=== PATIENT | male | born 1965 | race Hispanic/Latino ===

== ENCOUNTER 2024-02-24 20:02 | Inpatient (IN) | payer BC ==
[~2024-02-24] VITALS: Ht 180.3 cm; Wt 101.1 kg
[2024-02-24] MEDS: ACETAMINOPHEN 500 MG TABLET PO ONE (20:16)
[2024-02-24] MEDS ORDERED: CEFTRIAXONE 2GM VIAL IVPB ONE (20:30)
[2024-02-24] MEDS ORDERED: CEFTRIAXONE 1G VIAL 2 GM in 0.9%NACL 100ML 100 ML IV ONE (20:30)
[2024-02-24 20:37] LABS: RAPID GROUP A STREP negative (NEGATIVE)
[2024-02-24 20:39] LABS: INFLUENZA TYPE A NEGATIVE FOR TYPE A (NEG)
[2024-02-24 20:40] LABS: INFLUENZA TYPE B NEGATIVE FOR TYPE B (NEG)
[2024-02-24 20:42] LABS: SARS-CoV-2, RNA, NAAT NEGATIVE SARS CoV-2 (NEGATIVE)
[2024-02-24 20:51] LABS: BASOPHILS # (AUTO) 0.12 K/uL (0.00-0.20); BASOPHILS % (AUTO) 0.7 % (0.0-5.0); EOSINOPHILS % (AUTO) 0.6 % (0.0-8.0); HEMATOCRIT 48.2 % (42-54); IMMATURE GRANULOCYTE ABSOLUTE 0.13 K/uL (0-1); LYMPHOCYTES # (AUTO) 0.8 K/uL (1.0-4.8); LYMPHOCYTES % (AUTO) 4.7 % (21.0-51.0); MEAN CORPUSCULAR HEMOGLOBIN 32.2 pg (27.0-33.0); MEAN CORPUSCULAR HGB CONC 36.5 g/dL (32.0-36.0); MEAN CORPUSCULAR VOLUME 88.1 fL (79-99); MONOCYTES # (AUTO) 0.8 K/uL (0.1-1.0); MONOCYTES % (AUTO) 4.7 % (3.0-13.0); NEUTROPHILS # (AUTO) 14.6 K/uL (1.8-7.7); NEUTROPHILS % (AUTO) 88.5 % (40.0-77.0); PLATELET COUNT (AUTO) 144 K/uL (130-400); RED BLOOD CELL COUNT(AUTO) 5.47 MIL/uL (4.50-6.20); RED CELL DISTRIBUTION WIDTH 12.1 % (11.0-15.5); WHITE BLOOD COUNT (AUTO) 16.5 K/uL (4.8-10.8)
[2024-02-24 21:08] LABS: ALBUMIN 3.4 g/dL (3.5-5.0); CREATININE 1.1 mg/dL (0.5-1.3)
[2024-02-24 21:09] LABS: INR 1.13 (0.85-1.15); PROTHROMBIN TIME 13.2 SEC (9.6-11.6)
[2024-02-24 21:22] LABS: TOTAL PROTEIN, SERUM 6.9 g/dL (6.0-8.3)
[2024-02-24 21:24] LABS: POTASSIUM 2.6 mmol/L (3.5-5.1)
[2024-02-24 21:26] LABS: B-TYPE NATRIURETIC PEPTIDE 8 pg/mL (0-100)
[2024-02-24 21:49] VITALS: TEMP 98.5
[2024-02-24] MEDS: CEFTRIAXONE 1G VIAL IVPB ONE (21:59)
[2024-02-24] MEDS: METRONIDAZOLE 500MG/100ML BAG 100 ML IVPB STA (22:03)
[2024-02-24] MEDS: 0.9%NACL 1000ML 1,000 ML IV ONE (22:55)
[2024-02-24] MEDS: POTASSIUM BICARB/CIT AC 25 MEQ TABLET.EFF PO ONE (22:55)
[2024-02-24] MEDS: POTASSIUM CHLORIDE 10MEQ/100ML 100 ML IV ONE (23:54)
[2024-02-25] MEDS ORDERED: IOHEXOL-350 75 ML VIAL IV ONE (02:32)
[2024-02-25] MEDS: METRONIDAZOLE 500MG/100ML BAG IV STA (06:40)
[2024-02-25] MEDS: LACTATED RINGERS 1000ML 1,000 ML IV SCH (08:55)
[2024-02-25] MEDS: MORPHINE 2 MG SYG IVP PRN (08:55)
[2024-02-25 09:03] LABS: MAGNESIUM 2.1 mg/dL (1.80-2.40)
[2024-02-25] MEDS: PANTOPRAZOLE 40 MG/VIAL IVP SCH (09:08)
[2024-02-25] MEDS: POTASSIUM CHLORIDE 20MEQ/100ML 100 ML IV PRN (09:30)
[2024-02-25] MEDS ORDERED: ACETAMINOPHEN 325 MG TAB PO PRN (11:00)
[2024-02-25 11:15] LABS: APPEARANCE,URINE CLEAR (CLEAR); BILIRUBIN,URINE NEGATIVE (NEGATIVE); COLOR,URINE YELLOW (YELLOW); GLUCOSE, URINE (UA) NEGATIVE (NEGATIVE); KETONES,URINE NEGATIVE (NEGATIVE); LEUKOCYTE ESTERASE ,URINE NEGATIVE Leu/uL (NEGATIVE); NITRATE,URINE NEGATIVE (NEGATIVE); OCCULT BLOOD,URINE MODERATE (NEGATIVE); PROTEIN,URINE 30 mg/dL (NEGATIVE); UROBILINOGEN,URINE 0.2 mg/dL (0.2-1.0)
[2024-02-25] MEDS ORDERED: NAPR-1023 PO (11:16)
[2024-02-25] MEDS ORDERED: ATOR20TA65 PO (11:16)
[2024-02-25] MEDS ORDERED: METF-444 PO (11:16)
[2024-02-25 11:18] LABS: ADD UA MICROSCOPIC YES
[2024-02-25 11:19] VITALS: O2SAT 97
[2024-02-25 11:25] VITALS: BP 102/67; PULSE 82; RESP 19
[2024-02-25 11:30] LABS: BACTERIA,URINE RARE /HPF (None Seen); MUCUS,URINE RARE LPF (None Seen); RBC,URINE 26-50 /HPF (0-1)
[2024-02-25] MEDS: ZOSYN 3.375GM +NS 50ML IV SCH (12:12)
[2024-02-25] MEDS: ONDANSETRON 4MG INJ IVP PRN (12:22)
[2024-02-25] MEDS: METRONIDAZOLE 500MG/100ML BAG 100 ML IVPB SCH (13:13)
[2024-02-25] MEDS: CEFTRIAXONE 1G VIAL IVPB SCH (15:54)
[2024-02-25 16:00] VITALS: BP 116/66; PULSE 78; RESP 18
[2024-02-25 20:00] VITALS: BP 110/62; PULSE 87; RESP 19; O2SAT 97
[2024-02-26] VITALS (7 sets, daily range): BP systolic 99–128; BP diastolic 56–78; PULSE 74–89; RESP 19–20; O2SAT 97–99
[2024-02-26 04:18] LABS: BASOPHILS # (AUTO) 0.05 K/uL (0.00-0.20); BASOPHILS % (AUTO) 0.6 % (0.0-5.0); EOSINOPHILS # (AUTO) 0.09 K/uL (0.00-0.70); HEMATOCRIT 41.8 % (42-54); IMMATURE GRANULOCYTE ABSOLUTE 0.05 K/uL (0-1); LYMPHOCYTES # (AUTO) 1.8 K/uL (1.0-4.8); LYMPHOCYTES % (AUTO) 20.9 % (21.0-51.0); MEAN CORPUSCULAR HEMOGLOBIN 31.6 pg (27.0-33.0); MEAN CORPUSCULAR HGB CONC 35.4 g/dL (32.0-36.0); MEAN CORPUSCULAR VOLUME 89.3 fL (79-99); NEUTROPHILS # (AUTO) 5.8 K/uL (1.8-7.7); NEUTROPHILS % (AUTO) 65.9 % (40.0-77.0); PLATELET COUNT (AUTO) 132 K/uL (130-400); RED BLOOD CELL COUNT(AUTO) 4.68 MIL/uL (4.50-6.20); RED CELL DISTRIBUTION WIDTH 12.3 % (11.0-15.5); WHITE BLOOD COUNT (AUTO) 8.7 K/uL (4.8-10.8)
[2024-02-26 04:35] LABS: ALBUMIN 2.8 g/dL (3.5-5.0); BILIRUBIN,TOTAL 0.6 mg/dL (0.2-1.0); MAGNESIUM 2.1 mg/dL (1.80-2.40); TOTAL PROTEIN, SERUM 5.7 g/dL (6.0-8.3)
[2024-02-26 05:11] LABS: POTASSIUM 2.9 mmol/L (3.5-5.1)
[2024-02-26] MEDS: KCL 20 MEQ ERTAB PO ONE (06:41)
[2024-02-26] MEDS: KCL 20 MEQ ERTAB PO PRN (06:41)
[2024-02-26] MEDS: LACTOBACILLUS RHAMNOSUS GG 1 EACH CAP.SPRINK PO SCH (12:15)
[2024-02-27] VITALS (9 sets, daily range): BP systolic 90–129; BP diastolic 58–78; PULSE 72–82; RESP 18–20; O2SAT 97–98
[2024-02-27 05:50] LABS: BASOPHILS # (AUTO) 0.06 K/uL (0.00-0.20); BASOPHILS % (AUTO) 0.7 % (0.0-5.0); EOSINOPHILS # (AUTO) 0.18 K/uL (0.00-0.70); EOSINOPHILS % (AUTO) 2.2 % (0.0-8.0); HEMATOCRIT 40.9 % (42-54); IMMATURE GRANULOCYTE ABSOLUTE 0.12 K/uL (0-1); LYMPHOCYTES # (AUTO) 1.9 K/uL (1.0-4.8); MEAN CORPUSCULAR HEMOGLOBIN 30.6 pg (27.0-33.0); MEAN CORPUSCULAR HGB CONC 34.2 g/dL (32.0-36.0); MEAN CORPUSCULAR VOLUME 89.5 fL (79-99); MONOCYTES # (AUTO) 0.9 K/uL (0.1-1.0); MONOCYTES % (AUTO) 11.5 % (3.0-13.0); NEUTROPHILS # (AUTO) 4.9 K/uL (1.8-7.7); NEUTROPHILS % (AUTO) 61.1 % (40.0-77.0); PLATELET COUNT (AUTO) 148 K/uL (130-400); RED BLOOD CELL COUNT(AUTO) 4.57 MIL/uL (4.50-6.20); RED CELL DISTRIBUTION WIDTH 12.6 % (11.0-15.5); WHITE BLOOD COUNT (AUTO) 8.1 K/uL (4.8-10.8)
[2024-02-27 06:11] LABS: ALBUMIN 2.8 g/dL (3.5-5.0); BILIRUBIN,TOTAL 0.5 mg/dL (0.2-1.0); CREATININE 0.9 mg/dL (0.5-1.3); MAGNESIUM 1.8 mg/dL (1.80-2.40); POTASSIUM 3.5 mmol/L (3.5-5.1); TOTAL PROTEIN, SERUM 5.7 g/dL (6.0-8.3)
[2024-02-27] MEDS: POTASSIUM CHLORIDE 10% ELIXIR 20 MEQ/15 ML UDCUP PO PRN (09:10)
[2024-02-27] MEDS: MAGNESIUM 2GM PREMIX 50ML 50 ML IV PRN (09:11)
[2024-02-28 04:00] VITALS: BP 114/70; PULSE 73; RESP 18
[2024-02-28 05:57] LABS: BASOPHILS # (AUTO) 0.07 K/uL (0.00-0.20); BASOPHILS % (AUTO) 0.8 % (0.0-5.0); EOSINOPHILS % (AUTO) 3.3 % (0.0-8.0); IMMATURE GRANULOCYTE ABSOLUTE 0.23 K/uL (0-1); LYMPHOCYTES # (AUTO) 2.4 K/uL (1.0-4.8); MEAN CORPUSCULAR HEMOGLOBIN 31.5 pg (27.0-33.0); MEAN CORPUSCULAR HGB CONC 34.5 g/dL (32.0-36.0); MEAN CORPUSCULAR VOLUME 91.3 fL (79-99); MONOCYTES # (AUTO) 0.7 K/uL (0.1-1.0); MONOCYTES % (AUTO) 7.8 % (3.0-13.0); NEUTROPHILS # (AUTO) 5.5 K/uL (1.8-7.7); NEUTROPHILS % (AUTO) 59.6 % (40.0-77.0); PLATELET COUNT (AUTO) 162 K/uL (130-400); RED CELL DISTRIBUTION WIDTH 12.6 % (11.0-15.5); WHITE BLOOD COUNT (AUTO) 9.1 K/uL (4.8-10.8)
[2024-02-28 06:20] LABS: CREATININE 0.8 mg/dL (0.5-1.3); MAGNESIUM 1.8 mg/dL (1.80-2.40); POTASSIUM 3.4 mmol/L (3.5-5.1)
[2024-02-28 08:00] VITALS: BP 116/64; PULSE 68; RESP 20
[2024-02-28 12:00] VITALS: BP 115/71; PULSE 90; RESP 20; O2SAT 97
[2024-02-28 16:00] VITALS: BP 110/65; PULSE 68; RESP 20
== END 2024-02-28 16:30 | disposition home or self-care (01) | DRG 872 ==
LOC: EDH 20:02 → EDHIP 02-25 07:10 → 3AH 02-25 11:25
PROVIDERS: ADMIT Hospitalist; ATTEND Hospitalist
DX: A41.9 Sepsis, unspecified organism (principal); A09 Infectious gastroenteritis and colitis, unspecified; E44.1 Mild protein-calorie malnutrition; M62.82 Rhabdomyolysis; E83.42 Hypomagnesemia; E87.6 Hypokalemia; E66.9 Obesity, unspecified; F17.200 Nicotine dependence, unspecified, uncomplicated; Z20.822 Contact with and (suspected) exposure to COVID-19; Z68.31 Body mass index [BMI] 31.0-31.9, adult
CPT/HCPCS: 36415; 71045; 74177; 80048; 80053; 81001; 82270; 82550; 83605; 83630; 83690; 83735; 83880; 84132; 84484; 85025; 85610; 85730; 87040; 87046; 87088; 87177; 87324; 87635; 87804; 87880; 93005; 96375; 99291; C9113; G0378; J0696; J2270; J2405; J2543; J3475; J3480; J3490; J7030; J7120; Q9967